=== PATIENT | female | born 1980 ===

== ENCOUNTER 2016-09-18 11:13 | Emergency (ER) | payer MEDICAID ==
[2016-09-18 11:35] VITALS: RESP 18; TEMP 98.1; O2SAT 98
--- NOTE | 2016-09-18 11:45 | C.PDOC ---
History Of Present Illness 36 y/o female presents to ED with complaints of coughing for "couple of weeks". Patient states worse yesterday with burning sensation on chest and pain when coughing. Patient reports recently had bronchitis. Patient is a smoker but denies fever, n/v/d, sob, cp or any other complaints at this time. Time Seen by Provider: 09/18/16 11:36 Chief Complaint (Nursing): Cough, Cold, Congestion History Per: Patient History/Exam Limitations: no limitations Onset/Duration Of Symptoms: Days Current Symptoms Are (Timing): Still Present Associated Symptoms: Cough. denies: Fever Past Medical History Reviewed: Historical Data, Nursing Documentation, Vital Signs Vital Signs: Last Vital Signs Temp 98.1 F 09/18/16 11:25 Pulse 72 09/18/16 12:45 Resp 18 09/18/16 12:45 BP 124/75 09/18/16 12:45 Pulse Ox 98 09/18/16 12:45 - Medical History PMH: Hypercholesterolemia Surgical History: Cholecystectomy, Tonsillectomy, - [facility] Procedures INJECT/INFUSE NEC (01/10/13) Family History: States: No Known Family Hx - Social History Hx Alcohol Use: No Hx Substance Use: No - Immunization History Hx Tetanus Toxoid Vaccination: No Hx Influenza Vaccination: No Hx Pneumococcal Vaccination: No Review Of Systems Constitutional: Positive for: Chills. Negative for: Fever Cardiovascular: Positive for: Chest Pain. Negative for: Palpitations Respiratory: Positive for: Cough. Negative for: Shortness of Breath Gastrointestinal: Negative for: Nausea, Vomiting, Diarrhea Skin: Negative for: Rash Neurological: Negative for: Weakness, Dizziness Physical Exam - Physical Exam Appears: Non-toxic, No Acute Distress Skin: Normal Color, Warm Head: Atraumatic, Normacephalic Ear(s): Bilateral: TM Dull (No tenderness) Oral Mucosa: Moist Throat: Normal Neck: Normal ROM Chest: Other (Mild sternal border) Cardiovascular: Rhythm Regular, No Murmur Respiratory: No Rales, No Rhonchi, No Wheezing Gastrointestinal/Abdominal: Soft, No Tenderness, No Guarding, No Rebound Extremity: Normal ROM Neurological/Psych: Oriented x3, Normal Speech, Normal Cognition ED Course And Treatment ECG Rhythm: Sinus Rhythm (Normal) ECG Interpretation: Normal Rate From EC (bpm) O2 Sat by Pulse Oximetry: 98 (RA) Pulse Ox Interpretation: Normal - Other Rad CXR X-Ray: Interpreted by Me, Viewed By Me Interpretation: FINDINGS: LUNGS: No focal consolidation. Please note that chest x-ray has limited sensitivity for the detection of pulmonary masses. PLEURA: No significant pleural effusion identified. No definite pneumothorax . CARDIOVASCULAR: The cardiomediastinal silhouette appears within normal limits of size. OSSEOUS STRUCTURES: No acute osseous abnormality identified. VISUALIZED UPPER ABDOMEN: Unremarkable. OTHER FINDINGS: None. IMPRESSION: No focal consolidation, significant pleural effusion, or definite pneumothorax identified. Medical Decision Making Medical Decision Makin36 y/o female with cough, pleuritic cp and burning in chest, no sob, with normal ekg and neg cxr. will d/c home with pmd follow up/ Disposition Counseled Patient/Family Regarding: Studies Performed, Diagnosis, Need For Followup - Disposition Referrals: Katia Mg MD [Medical Doctor] - Disposition: HOME/ ROUTINE Disposition Time: 12:27 Condition: STABLE Additional Instructions: Stay well hydrated. Mucinex or Robitussen may help. Tylenol or Motrin for chest pain. Follow up with your PMD in a few days. Return to ER for any worsening symptoms. Instructions: Upper Respiratory Infection (ED) Forms: General Discharge Instructions, Work Excuse - Clinical Impression Clinical Impression: Upper respiratory infection - PA / CLINICAL DOCUMENTATION DEVELOPER / Resident Statement MD/DO has reviewed & agrees with the documentation as recorded. - Scribe Statement The provider has reviewed the documentation as recorded by the Paul Mason All medical record entries made by the Joseibcheli were at my direction and personally dictated by me. I have reviewed the chart and agree that the record accurately reflects my personal performance of the history, physical exam, medical decision making, and the department course for this patient. I have also personally directed, reviewed, and agree with the discharge instructions and disposition.
[2016-09-18] MEDS ORDERED: Aluminum Hydroxide/Magnesium Hydroxide Susp (30 mL) PO STA (11:53)
[2016-09-18] MEDS ORDERED: Aluminum Hydroxide/Magnesium Hydroxide Susp (30 mL) ONE (12:04)
--- NOTE | 2016-09-18 12:13 | RAD ---
HISTORY: cough and cp COMPARISON: Chest x-ray performed 07/30/15 TECHNIQUE: Chest PA and lateral FINDINGS: LUNGS: No focal consolidation. Please note that chest x-ray has limited sensitivity for the detection of pulmonary masses. PLEURA: No significant pleural effusion identified. No definite pneumothorax . CARDIOVASCULAR: The cardiomediastinal silhouette appears within normal limits of size. OSSEOUS STRUCTURES: No acute osseous abnormality identified. VISUALIZED UPPER ABDOMEN: Unremarkable. OTHER FINDINGS: None. IMPRESSION: No focal consolidation, significant pleural effusion, or definite pneumothorax identified.
[2016-09-18 12:46] VITALS: BP 124/75; PULSE 72
== END 2016-09-18 12:46 | disposition home or self-care (01) ==
LOC: C.ER 11:13
DX: J06.9 Acute upper respiratory infection, unspecified (principal)